=== PATIENT | female | born 1950 | race Hispanic/Latino ===

== ENCOUNTER 2017-05-15 12:04 | Emergency (ER) | payer MEDICARE ==
[2017-05-15] MEDS ORDERED: ASPIRIN 325 MG TABLET ONE (12:56)
[2017-05-15] MEDS ORDERED: FAMOTIDINE 20MG TAB 20 MG TAB ONE (12:57)
[2017-05-15] MEDS ORDERED: MORPHINE SULFATE 2 MG/ML 1ML SYG ONE (12:57)
[2017-05-15] MEDS ORDERED: NITROGLYCERIN 1GM/1 INCH PACKET TD ONE (12:57)
[2017-05-15 12:59] LABS: BASOPHILS % (AUTO) 0.4 % (0.0-5.0); EOSINOPHILS % (AUTO) 2.8 % (0.0-8.0); HEMATOCRIT 37.2 % (36-48); LYMPHOCYTES % (AUTO) 14.9 % (21.0-51.0); MEAN CORPUSCULAR HEMOGLOBIN 30.8 pg (27.0-33.0); MEAN CORPUSCULAR HGB CONC 33.8 g/dL (32.0-36.0); MONOCYTES % (AUTO) 5.3 % (3.0-13.0); NEUTROPHILS % (AUTO) 76.6 % (40.0-77.0); PLATELET COUNT (AUTO) 174 K/uL (130-400); RED BLOOD CELL COUNT(AUTO) 4.09 MIL/uL (4.00-5.50); WHITE BLOOD COUNT (AUTO) 7.6 K/uL (4.8-10.8)
[2017-05-15 13:11] LABS: CREATININE 0.9 mg/dL (0.5-1.5); POTASSIUM 4.1 mmol/L (3.5-5.1)
[2017-05-15 13:11] LABS: APPEARANCE,URINE Clear (CLEAR); BILIRUBIN,URINE Negative (NEGATIVE); COLOR,URINE Yellow (YELLOW); GLUCOSE, URINE (UA) >=1000 mg/dL (NEGATIVE); KETONES,URINE Negative (NEGATIVE); LEUKOCYTE ESTERASE ,URINE Trace (NEGATIVE); NITRATE,URINE Negative (NEGATIVE); OCCULT BLOOD,URINE Negative (NEGATIVE); PH,URINE 6.5 (5.0-8.0); PROTEIN,URINE Negative (NEGATIVE)
[2017-05-15 13:24] LABS: BACTERIA,URINE Rare /HPF (None Seen); RBC,URINE 0-1 /HPF (0-1); SQUAMOUS EPITHELIAL CELL,UR Rare /LPF (0-2)
[2017-05-15 13:24] LABS: ALBUMIN 2.9 g/dL (3.5-5.0); BILIRUBIN,TOTAL 0.3 mg/dL (0.2-1.0); CREATINE KINASE MB 0.5 ng/mL (0.5-3.6); TOTAL PROTEIN, SERUM 7.4 g/dL (6.0-8.3)
[2017-05-15] MEDS ORDERED: INSULIN HUMULIN R 100 UNIT/ML 3ML ONE (13:50)
[2017-05-15] MEDS ORDERED: IOPAMIDOL-370 100 ML VIAL IV ONE (14:36)
[2017-05-15] MEDS ORDERED: MORPHINE SULFATE 4 MG/1ML SYG ONE (14:38)
== END 2017-05-15 17:02 | disposition home or self-care (01) ==
LOC: EDH 12:04
DX: R07.89 Other chest pain (principal); M54.5 Low back pain; R11.0 Nausea; R06.02 Shortness of breath; R10.9 Unspecified abdominal pain; I10 Essential (primary) hypertension; E78.5 Hyperlipidemia, unspecified; E11.9 Type 2 diabetes mellitus without complications; I25.10 Atherosclerotic heart disease of native coronary artery without angina pectoris; Z88.8 Allergy status to other drugs, medicaments and biological substances; Z90.710 Acquired absence of both cervix and uterus; Z90.49 Acquired absence of other specified parts of digestive tract; Z87.891 Personal history of nicotine dependence
CPT/HCPCS: 36415; 71045; 71275; 80053; 81001; 82550; 82553; 83690; 84484; 85025; 85378; 93005; 96374; 96375; 96376; 99285; J1815; J2270; Q9967

== ENCOUNTER 2017-05-30 17:59 | Emergency (ER) | payer MEDICARE ==
[2017-05-30] MEDS ORDERED: PROMETHAZINE HCL 25 MG/ML 1ML AMPULE IM ONE (19:15)
[2017-05-30 19:19] LABS: BASOPHILS % (AUTO) 0.4 % (0.0-5.0); EOSINOPHILS % (AUTO) 3.7 % (0.0-8.0); HEMATOCRIT 35.9 % (36-48); LYMPHOCYTES % (AUTO) 19.1 % (21.0-51.0); MEAN CORPUSCULAR HEMOGLOBIN 30.9 pg (27.0-33.0); MEAN CORPUSCULAR HGB CONC 34.3 g/dL (32.0-36.0); MONOCYTES % (AUTO) 9.5 % (3.0-13.0); NEUTROPHILS % (AUTO) 67.3 % (40.0-77.0); PLATELET COUNT (AUTO) 168 K/uL (130-400); RED BLOOD CELL COUNT(AUTO) 3.98 MIL/uL (4.00-5.50); RED CELL DISTRIBUTION WIDTH 13.4 % (11.0-15.5); WHITE BLOOD COUNT (AUTO) 7.9 K/uL (4.8-10.8)
[2017-05-30 19:31] LABS: POTASSIUM 3.4 mmol/L (3.5-5.1)
[2017-05-30 19:45] LABS: BILIRUBIN,TOTAL 0.4 mg/dL (0.2-1.0); CREATINE KINASE MB 0.8 ng/mL (0.5-3.6); TOTAL PROTEIN, SERUM 7.4 g/dL (6.0-8.3)
[2017-05-30 19:46] LABS: INR 1.01 (0.85-1.15); PARTIAL THROMBOPLASTIN TIME 27.5 SEC (26.3-35.5); PROTHROMBIN TIME 10.6 SEC (9.6-11.6)
[2017-05-30 19:52] LABS: B-TYPE NATRIURETIC PEPTIDE 113 pg/mL (0-100)
== END 2017-05-30 21:50 | disposition home or self-care (01) ==
LOC: EDH 17:59
DX: F41.1 Generalized anxiety disorder (principal); I25.10 Atherosclerotic heart disease of native coronary artery without angina pectoris; E11.9 Type 2 diabetes mellitus without complications; E78.5 Hyperlipidemia, unspecified; I10 Essential (primary) hypertension; Z90.49 Acquired absence of other specified parts of digestive tract; Z90.710 Acquired absence of both cervix and uterus; Z98.890 Other specified postprocedural states; Z88.8 Allergy status to other drugs, medicaments and biological substances
CPT/HCPCS: 36415; 71045; 80053; 82550; 82553; 83880; 84484; 85025; 85610; 85730; 93005; 96372; 99285; J2550

== ENCOUNTER → 2019-04-14 | Outpatient (CLI) | payer MEDICARE | END | disposition home or self-care (01) | LOC: OIH 10:57 | PROVIDERS: ATTEND Internal Medicine | DX: M19.071 Primary osteoarthritis, right ankle and foot (principal); M77.51 Other enthesopathy of right foot and ankle; M19.072 Primary osteoarthritis, left ankle and foot; M77.52 Other enthesopathy of left foot and ankle; M17.0 Bilateral primary osteoarthritis of knee; M19.042 Primary osteoarthritis, left hand; M19.041 Primary osteoarthritis, right hand | CPT/HCPCS: 73560; 73620 ==

== ENCOUNTER 2020-08-06 14:26 | Observation (INO) | payer MEDICARE, OTHER ==
[~2020-08-06] VITALS: Ht 157.5 cm; Wt 117.4 kg
[2020-08-06] MEDS ORDERED: MORPHINE SULFATE 2 MG/ML 1ML SYG ONE (15:10)
[2020-08-06 15:23] LABS: BASOPHILS % (AUTO) 0.4 % (0.0-5.0); EOSINOPHILS % (AUTO) 2.4 % (0.0-8.0); HEMATOCRIT 41.5 % (36-48); LYMPHOCYTES % (AUTO) 12.3 % (21.0-51.0); MEAN CORPUSCULAR HEMOGLOBIN 30.8 pg (27.0-33.0); MEAN CORPUSCULAR HGB CONC 32.5 g/dL (32.0-36.0); MEAN CORPUSCULAR VOLUME 94.7 fL (79-99); NEUTROPHILS % (AUTO) 76.3 % (40.0-77.0); PLATELET COUNT (AUTO) 180 K/uL (130-400); RED BLOOD CELL COUNT(AUTO) 4.38 MIL/uL (4.00-5.50); RED CELL DISTRIBUTION WIDTH 12.2 % (11.0-15.5); WHITE BLOOD COUNT (AUTO) 9.7 K/uL (4.8-10.8)
[2020-08-06 15:36] LABS: CREATININE 1.3 mg/dL (0.5-1.5)
[2020-08-06 15:38] LABS: INR 1.04 (0.85-1.15); PROTHROMBIN TIME 11.3 SEC (9.6-11.6)
[2020-08-06 15:39] LABS: PARTIAL THROMBOPLASTIN TIME 27.1 SEC (26.3-35.5)
[2020-08-06 15:41] LABS: ALBUMIN 3.1 g/dL (3.5-5.0); BILIRUBIN,TOTAL 0.5 mg/dL (0.2-1.0); TOTAL PROTEIN, SERUM 7.9 g/dL (6.0-8.3)
[2020-08-06 16:21] LABS: APPEARANCE,URINE Clear (CLEAR); BILIRUBIN,URINE Negative (NEGATIVE); COLOR,URINE Yellow (YELLOW); GLUCOSE, URINE (UA) >=1000 mg/dL (NEGATIVE); KETONES,URINE Negative (NEGATIVE); LEUKOCYTE ESTERASE ,URINE Negative (NEGATIVE); NITRATE,URINE Negative (NEGATIVE); OCCULT BLOOD,URINE Negative (NEGATIVE); PH,URINE 6.5 (5.0-8.0); PROTEIN,URINE Negative (NEGATIVE)
[2020-08-06 16:28] LABS: BACTERIA,URINE Rare /HPF (None Seen); RBC,URINE None Seen /HPF (0-1); SQUAMOUS EPITHELIAL CELL,UR 0-2 /HPF (0-2); WBC,URINE 0-1 /HPF (0-1)
[2020-08-06] MEDS ORDERED: TRAMADOL /APAP 37.5MG/325MG TAB PO PRN (17:00)
[2020-08-06] MEDS ORDERED: KETOROLAC TROMETHAMINE 15MG/ML IV PRN (17:00)
[2020-08-06] MEDS ORDERED: ONDANSETRON HCL 4 MG/2 ML VIAL IVP PRN (17:00)
[2020-08-06] MEDS ORDERED: MORPHINE SULFATE 4 MG/1ML SYG IM PRN (17:15)
[2020-08-06] MEDS ORDERED: GLUCAGON 1MG KIT 1 MG ML IM PRN (17:30)
[2020-08-06] MEDS ORDERED: DEXTROSE 50%-WATER 50 ML DISP.SYRIN IV PRN (17:30)
[2020-08-06] MEDS ORDERED: KETOROLAC TROMETHAMINE 15MG/ML ONE (17:52)
[2020-08-06] MEDS ORDERED: SODIUM CHLORIDE 0.9% 50 ML IV ONE (17:52)
[2020-08-06] MEDS ORDERED: ZOSYN 3.375GM+NS 50ML 50 ML IV ONE (17:52)
[2020-08-06] MEDS ORDERED: MORPHINE SULFATE 4 MG/1ML SYG ONE (20:48)
[2020-08-06] MEDS ORDERED: INSULIN HUMULIN R 100 UNIT/ML 3ML ONE (20:49)
[2020-08-07] MEDS ORDERED: TRAMADOL /APAP 37.5MG/325MG TAB ONE (05:16)
[2020-08-07 05:38] LABS: HEMATOCRIT 39.8 % (36-48); MEAN CORPUSCULAR HEMOGLOBIN 32.1 pg (27.0-33.0); MEAN CORPUSCULAR HGB CONC 33.4 g/dL (32.0-36.0); MEAN CORPUSCULAR VOLUME 96.1 fL (79-99); RED BLOOD CELL COUNT(AUTO) 4.14 MIL/uL (4.00-5.50); RED CELL DISTRIBUTION WIDTH 12.4 % (11.0-15.5); WHITE BLOOD COUNT (AUTO) 10.4 K/uL (4.8-10.8)
[2020-08-07 05:54] LABS: INR 1.09 (0.85-1.15); PROTHROMBIN TIME 11.8 SEC (9.6-11.6)
[2020-08-07 05:58] LABS: CREATININE 1.4 mg/dL (0.5-1.5); POTASSIUM 4.3 mmol/L (3.5-5.1)
[2020-08-07] MEDS: PANTOPRAZOLE SODIUM 40 MG TABLET.DR PO SCH (09:00)
[2020-08-07] MEDS ORDERED: PANTOPRAZOLE SODIUM 40 MG TABLET.DR ONE (09:37)
[2020-08-07] MEDS ORDERED: KETOROLAC TROMETHAMINE 15MG/ML ONE (10:23)
[2020-08-07] MEDS ORDERED: MORPHINE SULFATE 4 MG/1ML SYG ONE (14:57)
[2020-08-07] MEDS: ZOSYN 3.375GM+NS 50ML 50 ML IV SCH (17:00)
[2020-08-07] MEDS ORDERED: ZOSYN 3.375GM+NS 50ML 50 ML IV ONE (17:53)
[2020-08-07] MEDS ORDERED: SODIUM CHLORIDE 0.9% 50 ML IV ONE (17:54)
[2020-08-07] MEDS ORDERED: INSULIN HUMULIN R 100 UNIT/ML 3ML ONE ×2 (18:28→21:32)
[2020-08-07] MEDS: INSULIN HUMULIN R 100 UNIT/ML 3ML SQ SCH (21:00)
[2020-08-07] MEDS: INSULIN GLARGINE 100 UNITS/ML 10 ML VIAL SQ SCH (21:00)
[2020-08-07] MEDS ORDERED: MORPHINE SULFATE 2 MG/ML 1ML SYG ONE (21:31)
[2020-08-07] MEDS ORDERED: PANTOPRAZOLE 40 MG/VIAL ONE (21:31)
[2020-08-07 23:30] VITALS: BP 114/54
[2020-08-08] VITALS (26 sets, daily range): BP systolic 110–174; BP diastolic 42–87
[2020-08-08] MEDS ORDERED: GABA300C PO (00:29)
[2020-08-08] MEDS ORDERED: METO50TA18 PO (00:29)
[2020-08-08] MEDS ORDERED: SIMV-46 PO (00:29)
[2020-08-08] MEDS ORDERED: GLIP5TAB11 PO (00:29)
[2020-08-08] MEDS ORDERED: BUSP5TAB3 PO (00:29)
[2020-08-08] MEDS ORDERED: LISI10TA24 PO (00:29)
[2020-08-08] MEDS ORDERED: TRAM50TA4 PO (00:29)
[2020-08-08] MEDS ORDERED: ALPR0.255 PO (00:29)
[2020-08-08] MEDS ORDERED: BUSPIRONE HCL 5 MG TABLET PO ONE (01:07)
[2020-08-08] MEDS ORDERED: INSU100I35 SQ (01:36)
[2020-08-08] MEDS: ZOSYN 3.375GM+NS 50ML 50 ML IV SCH ×2 (05:26→17:00)
[2020-08-08 05:35] LABS: HEMATOCRIT 36.2 % (36-48); MEAN CORPUSCULAR HEMOGLOBIN 32.1 pg (27.0-33.0); MEAN CORPUSCULAR HGB CONC 33.7 g/dL (32.0-36.0); MEAN CORPUSCULAR VOLUME 95.3 fL (79-99); RED BLOOD CELL COUNT(AUTO) 3.8 MIL/uL (4.00-5.50); RED CELL DISTRIBUTION WIDTH 12.5 % (11.0-15.5); WHITE BLOOD COUNT (AUTO) 8.1 K/uL (4.8-10.8)
[2020-08-08] MEDS: INSULIN HUMULIN R 100 UNIT/ML 3ML SQ SCH ×4 (05:45→20:36)
[2020-08-08 05:55] LABS: CREATININE 1.2 mg/dL (0.5-1.5); POTASSIUM 3.9 mmol/L (3.5-5.1)
[2020-08-08] MEDS: BUSPIRONE HCL 5 MG TABLET PO SCH ×2 (09:00→20:04)
[2020-08-08] MEDS: PANTOPRAZOLE SODIUM 40 MG TABLET.DR PO SCH (09:00)
[2020-08-08] MEDS ORDERED: CEFAZOLIN SODIUM 1 GM VIAL ONE (12:05)
[2020-08-08] MEDS ORDERED: IPRATROPIUM/ALBUTEROL SULFATE 3 ML SOLUTION IH PRN (14:30)
[2020-08-08] MEDS ORDERED: SODIUM CHLORIDE 0.9% 1000ML 1,000 ML IV ONE (14:39)
[2020-08-08] MEDS ORDERED: LIDOCAINE PF 2% 5ML ABBOJECT ONE (15:02)
[2020-08-08] MEDS ORDERED: PROPOFOL 10 MG/ML 20ML VIAL IV ONE (15:03)
[2020-08-08] MEDS ORDERED: MIDAZOLAM HCL 1 MG/ML 2ML VIAL ONE ×2 (15:03→15:06)
[2020-08-08] MEDS ORDERED: DEXAMETHASONE SOD PHOSPHATE 10MG/ML 1ML VIAL ONE (15:03)
[2020-08-08] MEDS ORDERED: ONDANSETRON HCL 4 MG/2 ML VIAL ONE (15:03)
[2020-08-08] MEDS ORDERED: FENTANYL CITRATE PF 50 MCG/1 ML 2ML VIAL ONE (15:03)
[2020-08-08] MEDS ORDERED: MEPERIDINE-PF 25 MG/ML SYG ONE (15:07)
[2020-08-08] MEDS ORDERED: MORPHINE SULFATE 4 MG/1ML SYG IV PRN (17:15)
[2020-08-08] MEDS ORDERED: IPRATROPIUM/ALBUTEROL SULFATE 3 ML SOLUTION IH SCH (18:00)
[2020-08-08] MEDS: INSULIN GLARGINE 100 UNITS/ML 10 ML VIAL SQ SCH (20:07)
== END 2020-08-08 22:15 | disposition home or self-care (01) ==
LOC: EDH 14:26 → EDHIP 16:51 → 3CH 08-07 22:28
PROVIDERS: ADMIT Internal Medicine; ATTEND Internal Medicine
DX: S01.112A Laceration without foreign body of left eyelid and periocular area, initial encounter (principal); S01.81XA Laceration without foreign body of other part of head, initial encounter; S80.02XA Contusion of left knee, initial encounter; E11.22 Type 2 diabetes mellitus with diabetic chronic kidney disease; I12.9 Hypertensive chronic kidney disease with stage 1 through stage 4 chronic kidney disease, or unspecified chronic kidney disease; N18.30 Chronic kidney disease, stage 3 unspecified; E78.5 Hyperlipidemia, unspecified; E66.01 Morbid (severe) obesity due to excess calories; M19.90 Unspecified osteoarthritis, unspecified site; J45.909 Unspecified asthma, uncomplicated; I25.10 Atherosclerotic heart disease of native coronary artery without angina pectoris; Z68.41 Body mass index [BMI] 40.0-44.9, adult; Z90.49 Acquired absence of other specified parts of digestive tract; Z90.710 Acquired absence of both cervix and uterus; Z91.81 History of falling; Z79.4 Long term (current) use of insulin; Z79.899 Other long term (current) drug therapy; Z91.041 Radiographic dye allergy status; W01.190A Fall on same level from slipping, tripping and stumbling with subsequent striking against furniture, initial encounter; Y93.89 Activity, other specified; Y92.009 Unspecified place in unspecified non-institutional (private) residence as the place of occurrence of the external cause
CPT/HCPCS: 13132; 13133; 36415 ×3; 70450; 70486; 71045; 73562 ×2; 80048 ×2; 80053; 81001; 82948 ×6; 85025; 85027 ×2; 85610 ×2; 85730; 93005; 94640; 94664; 96365; 96366; 96372; 96375; 99285; A4930; C9113; G0168; G0378 ×52; J0690; J1100; J1815 ×5; J1885 ×4; J2001; J2175; J2250 ×2; J2270 ×2; J2405; J2543 ×3; J2704; J3010; J7030 ×2

== ENCOUNTER 2022-10-13 16:57 | Inpatient (IN) | payer OTHER ==
[~2022-10-13] VITALS: Ht 157.5 cm; Wt 142.9 kg
[~2022-10-13 16:57] MED LIST: ACET-66 PO; ALPR0.255 PO; BUSP5TAB3 PO; FAMO20TA8 PO; FLUT1BLS12 IH; GABA300C PO; GLIP5TAB11 PO; INSU100C6 SQ; INSU100I35 SQ; INSU100V12 SQ; LISI10TA24 PO; METF-446 PO; METO50TA18 PO; OMEP20TA20 PO; PRIM125T PO; SEMA2PEN SQ; SIMV-46 PO; TRAM50TA4 PO
[2022-10-13 18:06] LABS: HEMATOCRIT 34.8 % (36-48); MEAN CORPUSCULAR HEMOGLOBIN 33.1 pg (27.0-33.0); MEAN CORPUSCULAR HGB CONC 31.9 g/dL (32.0-36.0); MEAN CORPUSCULAR VOLUME 103.9 fL (79-99); RED BLOOD CELL COUNT(AUTO) 3.35 MIL/uL (4.00-5.50); RED CELL DISTRIBUTION WIDTH 14.2 % (11.0-15.5); WHITE BLOOD COUNT (AUTO) 7.3 K/uL (4.8-10.8)
[2022-10-13 18:15] LABS: CREATININE 1.3 mg/dL (0.5-1.5); POTASSIUM 4.8 mmol/L (3.5-5.1)
[2022-10-13 18:19] LABS: BILIRUBIN,TOTAL 0.9 mg/dL (0.2-1.0); TOTAL PROTEIN, SERUM 6.4 g/dL (6.0-8.3)
[2022-10-13 19:24] LABS: APPEARANCE,URINE CLOUDY (CLEAR); BILIRUBIN,URINE NEGATIVE (NEGATIVE); COLOR,URINE YELLOW (YELLOW); GLUCOSE, URINE (UA) NEGATIVE (NEGATIVE); KETONES,URINE NEGATIVE (NEGATIVE); LEUKOCYTE ESTERASE ,URINE 500 Leu/uL (NEGATIVE); NITRATE,URINE 2+ (NEGATIVE); OCCULT BLOOD,URINE NEGATIVE (NEGATIVE); PROTEIN,URINE 30 mg/dL (NEGATIVE)
[2022-10-13 19:25] LABS: INFLUENZA TYPE A Negative For Type A (NEGATIVE); INFLUENZA TYPE B Negative For Type B (NEGATIVE); SARS-CoV-2, RNA, NAAT POSITIVE SARS CoV-2 (NEGATIVE)
[2022-10-13 19:26] LABS: ADD UA MICROSCOPIC YES
[2022-10-13 19:28] LABS: BACTERIA,URINE MOD /HPF (None Seen); SQUAMOUS EPITHELIAL CELL,UR MOD /HPF (0-2); WBC,URINE TNTC /HPF (0-1)
[2022-10-13 19:42] LABS: ABG HCO3 31.7 mmol/L (21.0-28.0); ABG PCO2 57 mmHg (32-45); ABG PH 7.365 (7.35-7.450); CARBON MONOXIDE 0.9; VENT MODE, BG NC (ROOM AIR)
[2022-10-13] MEDS ORDERED: FUROSEMIDE 40MG VIAL ONE (20:00)
[2022-10-13] MEDS ORDERED: ACETAMINOPHEN 325 MG TAB PO ONE (20:00)
[2022-10-13] MEDS ORDERED: FUROSEMIDE 100MG VIAL IVP ONE (20:00)
[2022-10-13] MEDS ORDERED: SOLU-MEDROL 125MG VIAL IVP ONE (20:00)
[2022-10-13] MEDS ORDERED: CEFTRIAXONE 1G VIAL IVPB ONE (21:00)
[2022-10-13] MEDS ORDERED: AZITHROMYCIN 250 MG TABLET PO ONE (21:00)
[2022-10-13] MEDS ORDERED: CLONIDINE HCL 0.1 MG TABLET PO PRN (23:30)
[2022-10-13] MEDS ORDERED: LABETALOL 20MG SYG IV PRN (23:30)
[2022-10-13] MEDS ORDERED: HYDRALAZINE 20MG/ML VIAL IV PRN (23:30)
[2022-10-13] MEDS: CEFTRIAXONE 1G VIAL IV SCH (23:30)
[2022-10-13] MEDS ORDERED: TEMAZEPAM 15 MG CAPSULE PO PRN (23:30)
[2022-10-13] MEDS ORDERED: ERGOCALCIFEROL (VITAMIN D2) 50,000 UNIT CAPSULE PO ONE (23:30)
[2022-10-13] MEDS: ALBUTEROL INHALER 90MCG/INH IH SCH (23:45)
[2022-10-14] MEDS ORDERED: IPRATROPIUM 0.5 MG/2.5 ML INH IH SCH
[2022-10-14] MEDS: ACETAMINOPHEN 325 MG TAB PO PRN (00:26)
[2022-10-14] MEDS: DEXAMETHASONE SOD PHOSPHATE 4 MG/ML 1ML VIAL IVP SCH ×2 (00:26→22:27)
[2022-10-14] MEDS: DOXYCYCLINE 100MG+NS 250ML IV SCH ×3 (00:26→22:26)
[2022-10-14] MEDS: ONDANSETRON 4MG INJ IVP PRN (01:28)
[2022-10-14 02:25] VITALS: PULSE 79; RESP 20; O2SAT 100
[2022-10-14 03:31] LABS: ABG BASE EXCESS 5.8 mmol/L (-2.0-3.0); ABG HCO3 33.1 mmol/L (21.0-28.0); ABG OXYGEN SATURATION 94.3 % (95.0-99.0); ABG PCO2 59 mmHg (32-45); ABG PH 7.365 (7.35-7.450); PO2, ARTERIAL BG 74.8 mmHg (83.0-108.0); VENT MODE, BG NC (ROOM AIR)
[2022-10-14] MEDS ORDERED: FUROSEMIDE 40MG VIAL IV ONE (04:30)
[2022-10-14] MEDS ORDERED: IOHEXOL 350 MG/ML 100ML INFUS..BTL IV ONE ×2 (05:42→08:13)
[2022-10-14] MEDS: ALBUTEROL INHALER 90MCG/INH IH SCH (05:45)
[2022-10-14 07:47] LABS: HEMATOCRIT 34.9 % (36-48); MEAN CORPUSCULAR HGB CONC 31.5 g/dL (32.0-36.0); MEAN CORPUSCULAR VOLUME 104.8 fL (79-99); RED BLOOD CELL COUNT(AUTO) 3.33 MIL/uL (4.00-5.50); WHITE BLOOD COUNT (AUTO) 7.8 K/uL (4.8-10.8)
[2022-10-14 08:17] LABS: CREATININE 1.4 mg/dL (0.5-1.5); MAGNESIUM 1.7 mg/dL (1.80-2.40); PHOSPHORUS 5.3 mg/dL (2.5-4.9); POTASSIUM 5.5 mmol/L (3.5-5.1); THYROID STIMULATING HORMONE 1.9 uIU/mL (0.36-3.74)
[2022-10-14] MEDS: INSULIN HUMULIN SQ SCH ×2 (09:00→20:41)
[2022-10-14] MEDS ORDERED: FLUTICASONE SALMETEROL IH SCH (09:00)
[2022-10-14] MEDS: METOPROLOL TARTRATE 50 MG TAB PO SCH ×2 (09:00→20:40)
[2022-10-14] MEDS: ENOXAPARIN SODIUM 30 MG/0.3 ML SQ SCH (09:32)
[2022-10-14] MEDS: BUSPIRONE HCL 5 MG TABLET PO SCH ×2 (09:32→20:40)
[2022-10-14] MEDS: PRIMIDONE 50 MG TAB PO SCH (09:33)
[2022-10-14] MEDS: ASPIRIN 81MG CHEW TAB PO SCH (09:33)
[2022-10-14] MEDS: GABAPENTIN 300 MG CAPSULE PO SCH ×2 (09:33→20:40)
[2022-10-14] MEDS: ASCORBIC ACID 500 MG TAB PO SCH (09:33)
[2022-10-14] MEDS: INSULIN HUMULIN R 100 UNIT/ML 3ML SQ SCH ×4 (09:35→20:58)
[2022-10-14] MEDS: ZINC SULFATE 220 CAPSULE PO SCH (09:36)
[2022-10-14] MEDS: CEFTRIAXONE 1G VIAL IV SCH ×2 (11:43→22:26)
[2022-10-14 12:11] LABS: INR 1.22 (0.85-1.15)
[2022-10-14 13:30] VITALS: O2SAT 94
[2022-10-14 16:00] VITALS: BP 124/67; PULSE 70; RESP 19
[2022-10-14 20:23] VITALS: BP 107/50; PULSE 85; RESP 20
[2022-10-14] MEDS: SIMVASTATIN 20 MG TABLET PO SCH (20:41)
[2022-10-14] MEDS: INSULIN GLARGINE 100 UNITS/ML 10 ML VIAL SQ SCH (20:59)
[2022-10-14] MEDS: GUAIFENESIN-DM 200/20 MG 10 ML PO PRN (22:53)
[2022-10-14 23:42] VITALS: BP 112/49; PULSE 82; RESP 18
[2022-10-15] VITALS (9 sets, daily range): BP systolic 103–118; BP diastolic 44–78; PULSE 67–77; RESP 16–20; O2SAT 97–98
[2022-10-15 04:53] LABS: BASOPHILS # (AUTO) 0.02 K/uL (0.00-0.20); BASOPHILS % (AUTO) 0.2 % (0.0-5.0); HEMATOCRIT 33.9 % (36-48); IMMATURE GRANULOCYTE ABSOLUTE 0.07 K/uL (0-1); LYMPHOCYTES # (AUTO) 0.7 K/uL (1.0-4.8); LYMPHOCYTES % (AUTO) 5.7 % (21.0-51.0); MEAN CORPUSCULAR HEMOGLOBIN 33.2 pg (27.0-33.0); MEAN CORPUSCULAR HGB CONC 31.6 g/dL (32.0-36.0); MEAN CORPUSCULAR VOLUME 105.3 fL (79-99); MONOCYTES # (AUTO) 0.7 K/uL (0.1-1.0); MONOCYTES % (AUTO) 5.8 % (3.0-13.0); NEUTROPHILS # (AUTO) 10.7 K/uL (1.8-7.7); NEUTROPHILS % (AUTO) 87.7 % (40.0-77.0); PLATELET COUNT (AUTO) 126 K/uL (130-400); RED BLOOD CELL COUNT(AUTO) 3.22 MIL/uL (4.00-5.50); RED CELL DISTRIBUTION WIDTH 14.4 % (11.0-15.5); WHITE BLOOD COUNT (AUTO) 12.2 K/uL (4.8-10.8)
[2022-10-15 05:08] LABS: WBC MORPHOLOGY CONSISTENT W/DIFF
[2022-10-15 05:24] LABS: BILIRUBIN,TOTAL 0.5 mg/dL (0.2-1.0); CREATININE 1.8 mg/dL (0.5-1.5); MAGNESIUM 1.7 mg/dL (1.80-2.40); POTASSIUM 5.5 mmol/L (3.5-5.1); TOTAL PROTEIN, SERUM 6.4 g/dL (6.0-8.3)
[2022-10-15] MEDS: INSULIN HUMULIN R 100 UNIT/ML 3ML SQ SCH ×4 (06:04→19:46)
[2022-10-15] MEDS ORDERED: MAGNESIUM OXIDE 400 MG TABLET PO ONE (08:30)
[2022-10-15] MEDS ORDERED: KAYEXALATE 15GM/60ML PO ONE (08:30)
[2022-10-15] MEDS ORDERED: DEXAMETHASONE 4 MG TAB PO SCH (08:30)
[2022-10-15] MEDS ORDERED: ZOSYN 3.375GM +NS 50ML IVPB SCH (09:00)
[2022-10-15] MEDS ORDERED: 0.9%NACL 50ML IV SCH (09:00)
[2022-10-15] MEDS: PRIMIDONE 50 MG TAB PO SCH (09:06)
[2022-10-15] MEDS: ZINC SULFATE 220 CAPSULE PO SCH (09:07)
[2022-10-15] MEDS: GABAPENTIN 300 MG CAPSULE PO SCH ×2 (09:08→22:15)
[2022-10-15] MEDS: ASPIRIN 81MG CHEW TAB PO SCH (09:08)
[2022-10-15] MEDS: METOPROLOL TARTRATE 50 MG TAB PO SCH ×2 (09:08→22:16)
[2022-10-15] MEDS: ASCORBIC ACID 500 MG TAB PO SCH (09:09)
[2022-10-15] MEDS: BUSPIRONE HCL 5 MG TABLET PO SCH ×2 (09:09→22:15)
[2022-10-15] MEDS: ENOXAPARIN SODIUM 30 MG/0.3 ML SQ SCH (09:10)
[2022-10-15] MEDS: INSULIN HUMULIN SQ SCH ×2 (09:35→22:20)
[2022-10-15] MEDS: 0.9%NACL 1000ML 1,000 ML IV SCH ×2 (13:30→23:30)
[2022-10-15] MEDS: DEXAMETHASONE 4 MG TAB PO SCH (17:28)
[2022-10-15] MEDS: CEFTRIAXONE 2GM VIAL IVPB SCH (17:28)
[2022-10-15] MEDS: SIMVASTATIN 20 MG TABLET PO SCH (22:15)
[2022-10-15] MEDS: INSULIN GLARGINE 100 UNITS/ML 10 ML VIAL SQ SCH (22:18)
[2022-10-15] MEDS ORDERED: DEXAMETHASONE SOD PHOSPHATE 4 MG/ML 1ML VIAL IVP SCH (23:30)
[2022-10-16] VITALS (10 sets, daily range): BP systolic 96–127; BP diastolic 47–64; PULSE 18–65; RESP 15–22; O2SAT 96–99
[2022-10-16 03:20] LABS: ABG BASE EXCESS 4.1 mmol/L (-2.0-3.0); ABG HCO3 31.9 mmol/L (21.0-28.0); ABG OXYGEN SATURATION 94.5 % (95.0-99.0); ABG PCO2 62 mmHg (32-45); ABG PH 7.333 (7.35-7.450); PO2, ARTERIAL BG 78.2 mmHg (83.0-108.0); VENT MODE, BG NC (ROOM AIR)
[2022-10-16 05:08] LABS: BASOPHILS # (AUTO) 0.01 K/uL (0.00-0.20); BASOPHILS % (AUTO) 0.1 % (0.0-5.0); HEMATOCRIT 33.5 % (36-48); IMMATURE GRANULOCYTE ABSOLUTE 0.04 K/uL (0-1); LYMPHOCYTES # (AUTO) 0.7 K/uL (1.0-4.8); LYMPHOCYTES % (AUTO) 7.1 % (21.0-51.0); MEAN CORPUSCULAR HGB CONC 31.6 g/dL (32.0-36.0); MEAN CORPUSCULAR VOLUME 104.4 fL (79-99); MONOCYTES # (AUTO) 0.7 K/uL (0.1-1.0); MONOCYTES % (AUTO) 7.7 % (3.0-13.0); NEUTROPHILS # (AUTO) 7.7 K/uL (1.8-7.7); NEUTROPHILS % (AUTO) 84.7 % (40.0-77.0); PLATELET COUNT (AUTO) 125 K/uL (130-400); RED BLOOD CELL COUNT(AUTO) 3.21 MIL/uL (4.00-5.50); RED CELL DISTRIBUTION WIDTH 14.4 % (11.0-15.5); WHITE BLOOD COUNT (AUTO) 9.1 K/uL (4.8-10.8)
[2022-10-16 05:46] LABS: ALBUMIN 2.1 g/dL (3.5-5.0); BILIRUBIN,TOTAL 0.4 mg/dL (0.2-1.0); CREATININE 2.2 mg/dL (0.5-1.5); MAGNESIUM 1.7 mg/dL (1.80-2.40); POTASSIUM 4.8 mmol/L (3.5-5.1); TOTAL PROTEIN, SERUM 6.3 g/dL (6.0-8.3)
[2022-10-16] MEDS: INSULIN HUMULIN R 100 UNIT/ML 3ML SQ SCH ×4 (07:30→22:50)
[2022-10-16] MEDS ORDERED: ALBUTEROL INHALER 90MCG/INH IH SCH (09:30)
[2022-10-16] MEDS: 0.9%NACL 1000ML 1,000 ML IV SCH ×2 (09:30→19:30)
[2022-10-16] MEDS: METOPROLOL TARTRATE 50 MG TAB PO SCH ×2 (09:31→22:53)
[2022-10-16] MEDS: ASCORBIC ACID 500 MG TAB PO SCH (09:31)
[2022-10-16] MEDS: BUSPIRONE HCL 5 MG TABLET PO SCH ×2 (09:31→22:53)
[2022-10-16] MEDS: ZINC SULFATE 220 CAPSULE PO SCH (09:32)
[2022-10-16] MEDS: PRIMIDONE 50 MG TAB PO SCH (09:32)
[2022-10-16] MEDS: DEXAMETHASONE 4 MG TAB PO SCH (09:32)
[2022-10-16] MEDS: ASPIRIN 81MG CHEW TAB PO SCH (09:32)
[2022-10-16] MEDS: GABAPENTIN 300 MG CAPSULE PO SCH ×2 (09:33→22:53)
[2022-10-16] MEDS: ENOXAPARIN SODIUM 30 MG/0.3 ML SQ SCH (09:34)
[2022-10-16] MEDS: INSULIN HUMULIN SQ SCH ×2 (09:49→22:50)
[2022-10-16] MEDS: HYDROCODONE/ACETAMINOPHEN 5/325 MG TAB PO PRN (13:36)
[2022-10-16] MEDS: IPRATROPIUM/ALBUTEROL SULFATE 3 ML SOLUTION IH SCH ×2 (14:14→19:44)
[2022-10-16] MEDS: CEFTRIAXONE 2GM VIAL IVPB SCH (14:54)
[2022-10-16 16:35] LABS: INR 1.22 (0.85-1.15)
[2022-10-16] MEDS: OCTREOTIDE ACETATE 100 MCG/ML AMP SQ SCH (18:10)
[2022-10-16] MEDS ORDERED: PHARMACY COMMUNICATION MISC SCH (18:30)
[2022-10-16] MEDS ORDERED: ALBUMIN (HUMAN) 25% 50 ML IV ONE (21:00)
[2022-10-16] MEDS: INSULIN GLARGINE 100 UNITS/ML 10 ML VIAL SQ SCH (22:49)
[2022-10-16] MEDS: SIMVASTATIN 20 MG TABLET PO SCH (22:53)
[2022-10-16] MEDS: MIDODRINE HCL 5 MG TABLET PO SCH (22:53)
[2022-10-17] VITALS (14 sets, daily range): BP systolic 97–152; BP diastolic 40–69; PULSE 59–71; RESP 16–24; O2SAT 94–98
[2022-10-17] MEDS: IPRATROPIUM/ALBUTEROL SULFATE 3 ML SOLUTION IH SCH ×5 (00:19→23:40)
[2022-10-17] MEDS: OCTREOTIDE ACETATE 100 MCG/ML AMP SQ SCH ×3 (02:34→16:21)
[2022-10-17] MEDS: 0.9%NACL 1000ML 1,000 ML IV SCH ×3 (05:43→21:34)
[2022-10-17 05:56] LABS: HEMATOCRIT 32.7 % (36-48); IMMATURE GRANULOCYTE ABSOLUTE 0.04 K/uL (0-1); LYMPHOCYTES # (AUTO) 0.6 K/uL (1.0-4.8); LYMPHOCYTES % (AUTO) 7.8 % (21.0-51.0); MEAN CORPUSCULAR HEMOGLOBIN 33.1 pg (27.0-33.0); MEAN CORPUSCULAR HGB CONC 32.4 g/dL (32.0-36.0); MEAN CORPUSCULAR VOLUME 102.2 fL (79-99); MONOCYTES # (AUTO) 0.9 K/uL (0.1-1.0); MONOCYTES % (AUTO) 12.1 % (3.0-13.0); NEUTROPHILS # (AUTO) 5.6 K/uL (1.8-7.7); NEUTROPHILS % (AUTO) 79.5 % (40.0-77.0); PLATELET COUNT (AUTO) 121 K/uL (130-400); RED CELL DISTRIBUTION WIDTH 14.4 % (11.0-15.5)
[2022-10-17 06:20] LABS: ALBUMIN 2.3 g/dL (3.5-5.0); BILIRUBIN,TOTAL 0.4 mg/dL (0.2-1.0); CREATININE 2.4 mg/dL (0.5-1.5); MAGNESIUM 1.8 mg/dL (1.80-2.40); POTASSIUM 4.4 mmol/L (3.5-5.1); TOTAL PROTEIN, SERUM 6.5 g/dL (6.0-8.3)
[2022-10-17] MEDS: INSULIN HUMULIN R 100 UNIT/ML 3ML SQ SCH ×4 (07:30→21:00)
[2022-10-17] MEDS: INSULIN HUMULIN SQ SCH ×2 (09:00→21:17)
[2022-10-17] MEDS: METOPROLOL TARTRATE 50 MG TAB PO SCH ×2 (09:00→21:11)
[2022-10-17] MEDS: ASCORBIC ACID 500 MG TAB PO SCH (10:00)
[2022-10-17] MEDS: PRIMIDONE 50 MG TAB PO SCH (10:00)
[2022-10-17] MEDS: ZINC SULFATE 220 CAPSULE PO SCH (10:00)
[2022-10-17] MEDS: BUSPIRONE HCL 5 MG TABLET PO SCH ×2 (10:00→21:10)
[2022-10-17] MEDS: ASPIRIN 81MG CHEW TAB PO SCH (10:00)
[2022-10-17] MEDS: GABAPENTIN 300 MG CAPSULE PO SCH ×2 (10:00→21:11)
[2022-10-17] MEDS: FUROSEMIDE 20MG VIAL IV SCH ×2 (10:01→21:10)
[2022-10-17] MEDS: DEXAMETHASONE 4 MG TAB PO SCH (10:01)
[2022-10-17] MEDS: MIDODRINE HCL 5 MG TABLET PO SCH ×3 (10:02→21:12)
[2022-10-17] MEDS: ENOXAPARIN SODIUM 30 MG/0.3 ML SQ SCH (10:03)
[2022-10-17] MEDS: HYDROCODONE/ACETAMINOPHEN 5/325 MG TAB PO PRN ×2 (10:31→16:48)
[2022-10-17] MEDS: CEFTRIAXONE 2GM VIAL IVPB SCH (16:21)
[2022-10-17] MEDS: SIMVASTATIN 20 MG TABLET PO SCH (21:11)
[2022-10-17] MEDS: INSULIN GLARGINE 100 UNITS/ML 10 ML VIAL SQ SCH (21:17)
[2022-10-18] VITALS (11 sets, daily range): BP systolic 126–158; BP diastolic 46–79; PULSE 52–69; RESP 16–24; O2SAT 94–99
[2022-10-18] MEDS: OCTREOTIDE ACETATE 100 MCG/ML AMP SQ SCH ×3 (00:02→15:39)
[2022-10-18 06:21] LABS: BASOPHILS # (AUTO) 0.01 K/uL (0.00-0.20); BASOPHILS % (AUTO) 0.1 % (0.0-5.0); IMMATURE GRANULOCYTE ABSOLUTE 0.03 K/uL (0-1); LYMPHOCYTES # (AUTO) 0.7 K/uL (1.0-4.8); LYMPHOCYTES % (AUTO) 9.3 % (21.0-51.0); MEAN CORPUSCULAR HEMOGLOBIN 33.3 pg (27.0-33.0); MEAN CORPUSCULAR HGB CONC 31.2 g/dL (32.0-36.0); MEAN CORPUSCULAR VOLUME 106.9 fL (79-99); MONOCYTES # (AUTO) 0.9 K/uL (0.1-1.0); NEUTROPHILS # (AUTO) 5.5 K/uL (1.8-7.7); NEUTROPHILS % (AUTO) 77.2 % (40.0-77.0); PLATELET COUNT (AUTO) 115 K/uL (130-400); RED BLOOD CELL COUNT(AUTO) 3.18 MIL/uL (4.00-5.50); RED CELL DISTRIBUTION WIDTH 14.2 % (11.0-15.5); WHITE BLOOD COUNT (AUTO) 7.2 K/uL (4.8-10.8)
[2022-10-18 06:36] LABS: ALBUMIN 2.2 g/dL (3.5-5.0); BILIRUBIN,TOTAL 0.5 mg/dL (0.2-1.0); CREATININE 2.5 mg/dL (0.5-1.5); MAGNESIUM 1.8 mg/dL (1.80-2.40); TOTAL PROTEIN, SERUM 6.8 g/dL (6.0-8.3)
[2022-10-18] MEDS: INSULIN HUMULIN R 100 UNIT/ML 3ML SQ SCH ×4 (06:42→20:51)
[2022-10-18] MEDS: IPRATROPIUM/ALBUTEROL SULFATE 3 ML SOLUTION IH SCH ×4 (07:15→23:44)
[2022-10-18] MEDS: MIDODRINE HCL 5 MG TABLET PO SCH ×3 (07:57→20:02)
[2022-10-18] MEDS ORDERED: FUROSEMIDE 20MG VIAL IV SCH (09:00)
[2022-10-18] MEDS: ENOXAPARIN SODIUM 30 MG/0.3 ML SQ SCH (09:31)
[2022-10-18] MEDS: DEXAMETHASONE 4 MG TAB PO SCH (09:32)
[2022-10-18] MEDS: ASCORBIC ACID 500 MG TAB PO SCH (09:32)
[2022-10-18] MEDS: PRIMIDONE 50 MG TAB PO SCH (09:32)
[2022-10-18] MEDS: ZINC SULFATE 220 CAPSULE PO SCH (09:32)
[2022-10-18] MEDS: ASPIRIN 81MG CHEW TAB PO SCH (09:33)
[2022-10-18] MEDS: METOPROLOL TARTRATE 50 MG TAB PO SCH ×2 (09:33→20:02)
[2022-10-18] MEDS: GABAPENTIN 300 MG CAPSULE PO SCH ×2 (09:33→20:02)
[2022-10-18] MEDS: 0.9%NACL 1000ML 1,000 ML IV SCH ×2 (09:35→16:30)
[2022-10-18] MEDS: BUSPIRONE HCL 5 MG TABLET PO SCH ×2 (09:36→20:02)
[2022-10-18] MEDS: INSULIN HUMULIN SQ SCH ×2 (09:47→20:51)
[2022-10-18] MEDS ORDERED: HONEY 1 APPL/ML TUBE TP SCH (10:30)
[2022-10-18] MEDS: ONDANSETRON 4MG INJ IVP PRN (12:01)
[2022-10-18] MEDS: CEFTRIAXONE 2GM VIAL IVPB SCH (15:39)
[2022-10-18] MEDS: SIMVASTATIN 20 MG TABLET PO SCH (20:02)
[2022-10-18] MEDS: INSULIN GLARGINE 100 UNITS/ML 10 ML VIAL SQ SCH (20:51)
[2022-10-19] VITALS (11 sets, daily range): BP systolic 114–160; BP diastolic 41–60; PULSE 57–63; RESP 16–20; O2SAT 92–100
[2022-10-19] MEDS: OCTREOTIDE ACETATE 100 MCG/ML AMP SQ SCH ×4 (00:11→23:22)
[2022-10-19] MEDS: ACETAMINOPHEN 325 MG TAB PO PRN ×2 (00:20→23:22)
[2022-10-19] MEDS: 0.9%NACL 1000ML 1,000 ML IV SCH ×3 (02:11→23:00)
[2022-10-19 05:43] LABS: ALBUMIN 2.3 g/dL (3.5-5.0); BILIRUBIN,TOTAL 0.4 mg/dL (0.2-1.0); CREATININE 2.6 mg/dL (0.5-1.5); MAGNESIUM 1.8 mg/dL (1.80-2.40); POTASSIUM 4.7 mmol/L (3.5-5.1); TOTAL PROTEIN, SERUM 6.8 g/dL (6.0-8.3)
[2022-10-19] MEDS: INSULIN HUMULIN R 100 UNIT/ML 3ML SQ SCH ×4 (06:15→21:00)
[2022-10-19] MEDS: IPRATROPIUM/ALBUTEROL SULFATE 3 ML SOLUTION IH SCH ×5 (06:52→23:15)
[2022-10-19] MEDS: GABAPENTIN 300 MG CAPSULE PO SCH ×2 (08:49→19:45)
[2022-10-19] MEDS: BUSPIRONE HCL 5 MG TABLET PO SCH ×2 (08:50→19:45)
[2022-10-19] MEDS: METOPROLOL TARTRATE 50 MG TAB PO SCH ×2 (08:50→19:45)
[2022-10-19] MEDS: ASCORBIC ACID 500 MG TAB PO SCH (08:50)
[2022-10-19] MEDS: PRIMIDONE 50 MG TAB PO SCH (08:50)
[2022-10-19] MEDS: MIDODRINE HCL 5 MG TABLET PO SCH ×3 (08:50→19:52)
[2022-10-19] MEDS: DEXAMETHASONE 4 MG TAB PO SCH (08:50)
[2022-10-19] MEDS: ZINC SULFATE 220 CAPSULE PO SCH (08:50)
[2022-10-19] MEDS: ASPIRIN 81MG CHEW TAB PO SCH (08:51)
[2022-10-19] MEDS: ENOXAPARIN SODIUM 30 MG/0.3 ML SQ SCH (08:51)
[2022-10-19] MEDS: INSULIN HUMULIN SQ SCH ×2 (08:57→21:23)
[2022-10-19] MEDS ORDERED: POLYETHYLENE GLYCOL 3350 17 GM POWD.PACK PO PRN (13:30)
[2022-10-19] MEDS: CEFTRIAXONE 2GM VIAL IVPB SCH (15:30)
[2022-10-19] MEDS: POLYETHYLENE GLYCOL 3350 17 GM POWD.PACK PO PRN ×2 (15:31→19:51)
[2022-10-19] MEDS: SIMVASTATIN 20 MG TABLET PO SCH (19:45)
[2022-10-19] MEDS: DOCUSATE SODIUM 100 MG CAP PO SCH (19:45)
[2022-10-19] MEDS: INSULIN GLARGINE 100 UNITS/ML 10 ML VIAL SQ SCH (21:23)
[2022-10-19] MEDS: ONDANSETRON 4MG INJ IVP PRN (23:22)
[2022-10-20] VITALS (13 sets, daily range): BP systolic 126–186; BP diastolic 42–75; PULSE 55–65; RESP 17–23; O2SAT 99–100
[2022-10-20] MEDS ORDERED: DEXTROSE 50%-WATER 50 ML DISP.SYRIN IV ONE ×3 (03:21→15:07)
[2022-10-20] MEDS: GUAIFENESIN-DM 200/20 MG 10 ML PO PRN (03:21)
[2022-10-20 05:20] LABS: BASOPHILS # (AUTO) 0.01 K/uL (0.00-0.20); BASOPHILS % (AUTO) 0.1 % (0.0-5.0); HEMATOCRIT 40.5 % (36-48); IMMATURE GRANULOCYTE ABSOLUTE 0.05 K/uL (0-1); LYMPHOCYTES # (AUTO) 0.6 K/uL (1.0-4.8); MEAN CORPUSCULAR HEMOGLOBIN 33.2 pg (27.0-33.0); MEAN CORPUSCULAR HGB CONC 31.6 g/dL (32.0-36.0); MEAN CORPUSCULAR VOLUME 105.2 fL (79-99); MONOCYTES # (AUTO) 1.4 K/uL (0.1-1.0); MONOCYTES % (AUTO) 14.8 % (3.0-13.0); NEUTROPHILS # (AUTO) 7.5 K/uL (1.8-7.7); NEUTROPHILS % (AUTO) 78.6 % (40.0-77.0); PLATELET COUNT (AUTO) 114 K/uL (130-400); RED BLOOD CELL COUNT(AUTO) 3.85 MIL/uL (4.00-5.50); RED CELL DISTRIBUTION WIDTH 13.9 % (11.0-15.5); WHITE BLOOD COUNT (AUTO) 9.5 K/uL (4.8-10.8)
[2022-10-20 05:49] LABS: ALBUMIN 2.3 g/dL (3.5-5.0); BILIRUBIN,TOTAL 0.5 mg/dL (0.2-1.0); MAGNESIUM 1.6 mg/dL (1.80-2.40); POTASSIUM 4.4 mmol/L (3.5-5.1); TOTAL PROTEIN, SERUM 7.1 g/dL (6.0-8.3)
[2022-10-20] MEDS: IPRATROPIUM/ALBUTEROL SULFATE 3 ML SOLUTION IH SCH ×4 (06:30→23:08)
[2022-10-20] MEDS: ONDANSETRON 4MG INJ IVP PRN (07:23)
[2022-10-20] MEDS: INSULIN HUMULIN R 100 UNIT/ML 3ML SQ SCH ×4 (07:24→21:00)
[2022-10-20] MEDS: OCTREOTIDE ACETATE 100 MCG/ML AMP SQ SCH ×3 (08:00→23:05)
[2022-10-20] MEDS: 0.9%NACL 1000ML 1,000 ML IV SCH ×2 (08:30→20:07)
[2022-10-20] MEDS: ENOXAPARIN SODIUM 30 MG/0.3 ML SQ SCH (09:00)
[2022-10-20] MEDS: MIDODRINE HCL 5 MG TABLET PO SCH ×3 (09:00→20:09)
[2022-10-20] MEDS: INSULIN HUMULIN SQ SCH (09:00)
[2022-10-20] MEDS ORDERED: INSLAN SQ (12:35)
[2022-10-20] MEDS ORDERED: INSU100V12 SQ (12:37)
[2022-10-20] MEDS ORDERED: HUM100IN SQ (12:44)
[2022-10-20] MEDS: ASPIRIN 81MG CHEW TAB PO SCH (12:45)
[2022-10-20] MEDS: DEXAMETHASONE 4 MG TAB PO SCH (12:45)
[2022-10-20] MEDS: METOPROLOL TARTRATE 50 MG TAB PO SCH ×2 (12:45→20:08)
[2022-10-20] MEDS: PRIMIDONE 50 MG TAB PO SCH (12:45)
[2022-10-20] MEDS: GABAPENTIN 300 MG CAPSULE PO SCH ×2 (12:45→20:07)
[2022-10-20] MEDS: DOCUSATE SODIUM 100 MG CAP PO SCH ×2 (12:45→20:07)
[2022-10-20] MEDS: ASCORBIC ACID 500 MG TAB PO SCH (12:45)
[2022-10-20] MEDS: ZINC SULFATE 220 CAPSULE PO SCH (12:45)
[2022-10-20] MEDS: BUSPIRONE HCL 5 MG TABLET PO SCH ×2 (12:46→20:07)
[2022-10-20 14:05] LABS: ABG BASE EXCESS 1.8 mmol/L (-2.0-3.0); ABG HCO3 29.8 mmol/L (21.0-28.0); ABG OXYGEN SATURATION 96.6 % (95.0-99.0); ABG PCO2 64 mmHg (32-45); CARBON MONOXIDE 0.5; DEVICE COMMENT RR 2LNC; HHb 3.4; PO2, ARTERIAL BG 92.1 mmHg (83.0-108.0); VENT MODE, BG 2LNC (ROOM AIR)
[2022-10-20] MEDS: CEFTRIAXONE 2GM VIAL IVPB SCH (15:11)
[2022-10-20] MEDS: SIMVASTATIN 20 MG TABLET PO SCH (20:08)
[2022-10-21] VITALS (13 sets, daily range): BP systolic 110–129; BP diastolic 26–44; PULSE 49–60; RESP 16–24; O2SAT 97–100
[2022-10-21] MEDS: ACETAMINOPHEN 325 MG TAB PO PRN (01:14)
[2022-10-21 04:31] LABS: ABG BASE EXCESS 5.3 mmol/L (-2.0-3.0); ABG HCO3 34.4 mmol/L (21.0-28.0); ABG OXYGEN SATURATION 94.9 % (95.0-99.0); ABG PCO2 72 mmHg (32-45); DEVICE COMMENT LR ASHLEY; PO2, ARTERIAL BG 83.8 mmHg (83.0-108.0); VENT MODE, BG BIPAP 12-5 (ROOM AIR)
[2022-10-21 05:12] LABS: EOSINOPHILS # (AUTO) 0.22 K/uL (0.00-0.70); EOSINOPHILS % (AUTO) 2.5 % (0.0-8.0); HEMATOCRIT 36.2 % (36-48); IMMATURE GRANULOCYTE ABSOLUTE 0.04 K/uL (0-1); LYMPHOCYTES # (AUTO) 0.7 K/uL (1.0-4.8); LYMPHOCYTES % (AUTO) 7.9 % (21.0-51.0); MEAN CORPUSCULAR HEMOGLOBIN 33.3 pg (27.0-33.0); MEAN CORPUSCULAR HGB CONC 31.2 g/dL (32.0-36.0); MEAN CORPUSCULAR VOLUME 106.8 fL (79-99); MONOCYTES # (AUTO) 1.2 K/uL (0.1-1.0); MONOCYTES % (AUTO) 13.9 % (3.0-13.0); NEUTROPHILS # (AUTO) 6.5 K/uL (1.8-7.7); NEUTROPHILS % (AUTO) 75.2 % (40.0-77.0); PLATELET COUNT (AUTO) 96 K/uL (130-400); RED BLOOD CELL COUNT(AUTO) 3.39 MIL/uL (4.00-5.50); RED CELL DISTRIBUTION WIDTH 14.2 % (11.0-15.5); WHITE BLOOD COUNT (AUTO) 8.7 K/uL (4.8-10.8)
[2022-10-21] MEDS: 0.9%NACL 1000ML 1,000 ML IV SCH ×3 (05:36→23:51)
[2022-10-21 05:39] LABS: ALBUMIN 1.9 g/dL (3.5-5.0); BILIRUBIN,TOTAL 0.4 mg/dL (0.2-1.0); CREATININE 1.7 mg/dL (0.5-1.5); MAGNESIUM 1.6 mg/dL (1.80-2.40); POTASSIUM 4.8 mmol/L (3.5-5.1); TOTAL PROTEIN, SERUM 5.8 g/dL (6.0-8.3)
[2022-10-21] MEDS ORDERED: MORPHINE 2 MG SYG IVP ONE (06:30)
[2022-10-21] MEDS: INSULIN HUMULIN R 100 UNIT/ML 3ML SQ SCH ×4 (06:37→21:00)
[2022-10-21] MEDS: MAGNESIUM 2GM PREMIX 50ML 50 ML IV SCH (06:42)
[2022-10-21] MEDS: IPRATROPIUM/ALBUTEROL SULFATE 3 ML SOLUTION IH SCH ×3 (06:58→19:11)
[2022-10-21] MEDS: INSULIN HUMULIN 70/30 100 UNIT/ML 3ML SQ SCH (07:30)
[2022-10-21] MEDS ORDERED: MAGNESIUM 2GM PREMIX 50ML 50 ML IV SCH (09:00)
[2022-10-21] MEDS: POLYETHYLENE GLYCOL 3350 17 GM POWD.PACK PO PRN (09:38)
[2022-10-21] MEDS: DEXAMETHASONE 4 MG TAB PO SCH (09:40)
[2022-10-21] MEDS: METOPROLOL TARTRATE 50 MG TAB PO SCH ×2 (09:40→22:00)
[2022-10-21] MEDS: MIDODRINE HCL 5 MG TABLET PO SCH ×3 (09:41→22:00)
[2022-10-21] MEDS: ASPIRIN 81MG CHEW TAB PO SCH (09:41)
[2022-10-21] MEDS: ASCORBIC ACID 500 MG TAB PO SCH (09:41)
[2022-10-21] MEDS: BUSPIRONE HCL 5 MG TABLET PO SCH ×2 (09:41→22:01)
[2022-10-21] MEDS: PRIMIDONE 50 MG TAB PO SCH (09:42)
[2022-10-21] MEDS: ZINC SULFATE 220 CAPSULE PO SCH (09:42)
[2022-10-21] MEDS: DOCUSATE SODIUM 100 MG CAP PO SCH ×2 (09:42→22:00)
[2022-10-21] MEDS: GABAPENTIN 300 MG CAPSULE PO SCH ×2 (09:42→22:00)
[2022-10-21] MEDS: ENOXAPARIN SODIUM 30 MG/0.3 ML SQ SCH (09:44)
[2022-10-21] MEDS: OCTREOTIDE ACETATE 100 MCG/ML AMP SQ SCH ×3 (10:37→23:51)
[2022-10-21 11:43] LABS: ABG BASE EXCESS 4.7 mmol/L (-2.0-3.0); ABG HCO3 33.9 mmol/L (21.0-28.0); ABG OXYGEN SATURATION 95.2 % (95.0-99.0); ABG PCO2 72 mmHg (32-45); ABG PH 7.292 (7.35-7.450); PO2, ARTERIAL BG 86.6 mmHg (83.0-108.0); VENT MODE, BG NC (ROOM AIR)
[2022-10-21] MEDS: CEFTRIAXONE 2GM VIAL IVPB SCH (15:13)
[2022-10-21] MEDS: SIMVASTATIN 20 MG TABLET PO SCH (22:01)
[2022-10-21] MEDS: INSULIN GLARGINE 100 UNITS/ML 10 ML VIAL SQ SCH (22:02)
[2022-10-22] VITALS (18 sets, daily range): BP systolic 104–137; BP diastolic 36–57; PULSE 51–65; RESP 18–24; O2SAT 94–100
[2022-10-22] MEDS: IPRATROPIUM/ALBUTEROL SULFATE 3 ML SOLUTION IH SCH ×5 (00:58→23:48)
[2022-10-22 05:32] LABS: BASOPHILS # (AUTO) 0.01 K/uL (0.00-0.20); BASOPHILS % (AUTO) 0.1 % (0.0-5.0); EOSINOPHILS # (AUTO) 0.01 K/uL (0.00-0.70); EOSINOPHILS % (AUTO) 0.1 % (0.0-8.0); HEMATOCRIT 34.2 % (36-48); IMMATURE GRANULOCYTE ABSOLUTE 0.05 K/uL (0-1); LYMPHOCYTES # (AUTO) 0.5 K/uL (1.0-4.8); MEAN CORPUSCULAR HEMOGLOBIN 33.5 pg (27.0-33.0); MEAN CORPUSCULAR HGB CONC 31.6 g/dL (32.0-36.0); MEAN CORPUSCULAR VOLUME 106.2 fL (79-99); MONOCYTES # (AUTO) 0.6 K/uL (0.1-1.0); NEUTROPHILS # (AUTO) 6.8 K/uL (1.8-7.7); NEUTROPHILS % (AUTO) 85.2 % (40.0-77.0); PLATELET COUNT (AUTO) 75 K/uL (130-400); RED BLOOD CELL COUNT(AUTO) 3.22 MIL/uL (4.00-5.50); RED CELL DISTRIBUTION WIDTH 14.2 % (11.0-15.5)
[2022-10-22 05:57] LABS: BILIRUBIN,TOTAL 0.5 mg/dL (0.2-1.0); CREATININE 1.8 mg/dL (0.5-1.5); MAGNESIUM 1.9 mg/dL (1.80-2.40); POTASSIUM 5.6 mmol/L (3.5-5.1); TOTAL PROTEIN, SERUM 5.5 g/dL (6.0-8.3)
[2022-10-22 05:58] LABS: ALBUMIN 1.8 g/dL (3.5-5.0)
[2022-10-22 06:13] LABS: WBC MORPHOLOGY CONSISTENT W/DIFF
[2022-10-22] MEDS: INSULIN HUMULIN 70/30 100 UNIT/ML 3ML SQ SCH (06:21)
[2022-10-22] MEDS: INSULIN HUMULIN R 100 UNIT/ML 3ML SQ SCH ×4 (06:22→22:29)
[2022-10-22] MEDS: ENOXAPARIN SODIUM 30 MG/0.3 ML SQ SCH ×2 (09:00→22:38)
[2022-10-22] MEDS: DEXAMETHASONE 4 MG TAB PO SCH (09:03)
[2022-10-22] MEDS: ASPIRIN 81MG CHEW TAB PO SCH (09:05)
[2022-10-22] MEDS: DOCUSATE SODIUM 100 MG CAP PO SCH ×2 (09:05→22:25)
[2022-10-22] MEDS: ZINC SULFATE 220 CAPSULE PO SCH (09:05)
[2022-10-22] MEDS: PRIMIDONE 50 MG TAB PO SCH (09:05)
[2022-10-22] MEDS: METOPROLOL TARTRATE 50 MG TAB PO SCH ×2 (09:05→22:26)
[2022-10-22] MEDS: MIDODRINE HCL 5 MG TABLET PO SCH ×3 (09:06→22:25)
[2022-10-22] MEDS: BUSPIRONE HCL 5 MG TABLET PO SCH ×2 (09:06→22:25)
[2022-10-22] MEDS: GABAPENTIN 300 MG CAPSULE PO SCH ×2 (09:06→22:26)
[2022-10-22] MEDS: ASCORBIC ACID 500 MG TAB PO SCH (09:06)
[2022-10-22] MEDS: POLYETHYLENE GLYCOL 3350 17 GM POWD.PACK PO PRN (09:07)
[2022-10-22] MEDS: OCTREOTIDE ACETATE 100 MCG/ML AMP SQ SCH ×2 (09:08→16:11)
[2022-10-22 11:10] LABS: CHOLESTEROL 86 mg/dL (<200); HDL CHOLESTEROL 26 mg/dL (35-85); LDL DIRECT 50 mg/dL (0-99); TRIGLYCERIDES 49 mg/dL (30-200)
[2022-10-22] MEDS: 0.9%NACL 1000ML 1,000 ML IV SCH ×2 (11:32→22:27)
[2022-10-22] MEDS ORDERED: KAYEXALATE 15GM/60ML PO ONE ×2 (12:00→12:30)
[2022-10-22 12:27] LABS: ABG BASE EXCESS 4.9 mmol/L (-2.0-3.0); ABG HCO3 30.6 mmol/L (21.0-28.0); ABG OXYGEN SATURATION 96.5 % (95.0-99.0); ABG PCO2 49 mmHg (32-45); ABG PH 7.414 (7.35-7.450); PO2, ARTERIAL BG 86.2 mmHg (83.0-108.0); VENT MODE, BG BIPAP 16 6 (ROOM AIR)
[2022-10-22] MEDS ORDERED: BISACODYL 10 MG SUPP.RECT RC ONE (12:30)
[2022-10-22] MEDS: CEFTRIAXONE 2GM VIAL IVPB SCH (16:10)
[2022-10-22] MEDS ORDERED: KCL 20 MEQ ERTAB PO ONE (18:00)
[2022-10-22] MEDS: SIMVASTATIN 20 MG TABLET PO SCH (22:25)
[2022-10-22] MEDS: INSULIN GLARGINE 100 UNITS/ML 10 ML VIAL SQ SCH (22:30)
[2022-10-23] VITALS (16 sets, daily range): BP systolic 96–171; BP diastolic 30–86; PULSE 54–63; RESP 17–20; O2SAT 98–100
[2022-10-23] MEDS: OCTREOTIDE ACETATE 100 MCG/ML AMP SQ SCH ×4 (00:07→23:52)
[2022-10-23 05:32] LABS: HEMATOCRIT 33.7 % (36-48); MEAN CORPUSCULAR HEMOGLOBIN 33.5 pg (27.0-33.0); MEAN CORPUSCULAR VOLUME 104.7 fL (79-99); RED BLOOD CELL COUNT(AUTO) 3.22 MIL/uL (4.00-5.50); RED CELL DISTRIBUTION WIDTH 14.5 % (11.0-15.5); WHITE BLOOD COUNT (AUTO) 8.8 K/uL (4.8-10.8)
[2022-10-23] MEDS: INSULIN HUMULIN R 100 UNIT/ML 3ML SQ SCH ×4 (06:15→20:46)
[2022-10-23] MEDS: IPRATROPIUM/ALBUTEROL SULFATE 3 ML SOLUTION IH SCH ×4 (06:22→23:31)
[2022-10-23] MEDS: INSULIN HUMULIN 70/30 100 UNIT/ML 3ML SQ SCH (06:25)
[2022-10-23] MEDS: 0.9%NACL 1000ML 1,000 ML IV SCH ×2 (06:26→16:30)
[2022-10-23 06:39] LABS: ALBUMIN 1.9 g/dL (3.5-5.0); CREATININE 1.5 mg/dL (0.5-1.5); MAGNESIUM 1.8 mg/dL (1.80-2.40); POTASSIUM 5.3 mmol/L (3.5-5.1)
[2022-10-23 06:56] LABS: SARS-CoV-2, RNA, NAAT NEGATIVE SARS CoV-2 (NEGATIVE)
[2022-10-23] MEDS ORDERED: LEVOFLOXACIN 500 MG/D5W 100 ML 100 ML IV SCH (07:30)
[2022-10-23] MEDS ORDERED: LEVOFLOXACIN 500 MG/D5W 100 ML 100 ML IV ONE (09:00)
[2022-10-23] MEDS: ENOXAPARIN SODIUM 30 MG/0.3 ML SQ SCH (09:00)
[2022-10-23] MEDS: DOCUSATE SODIUM 100 MG CAP PO SCH ×2 (10:24→20:36)
[2022-10-23] MEDS: ASPIRIN 81MG CHEW TAB PO SCH (10:24)
[2022-10-23] MEDS: ASCORBIC ACID 500 MG TAB PO SCH (10:25)
[2022-10-23] MEDS: PRIMIDONE 50 MG TAB PO SCH (10:25)
[2022-10-23] MEDS: METOPROLOL TARTRATE 50 MG TAB PO SCH ×2 (10:25→20:37)
[2022-10-23] MEDS: ZINC SULFATE 220 CAPSULE PO SCH (10:25)
[2022-10-23] MEDS: MIDODRINE HCL 5 MG TABLET PO SCH ×3 (10:25→20:37)
[2022-10-23] MEDS: GABAPENTIN 300 MG CAPSULE PO SCH ×2 (10:26→20:36)
[2022-10-23] MEDS: DEXAMETHASONE 4 MG TAB PO SCH (10:26)
[2022-10-23] MEDS: BUSPIRONE HCL 5 MG TABLET PO SCH ×2 (10:26→20:36)
[2022-10-23] MEDS: ALPRAZOLAM 0.25 MG TABLET PO PRN (17:20)
[2022-10-23] MEDS: SIMVASTATIN 20 MG TABLET PO SCH (20:37)
[2022-10-23] MEDS: INSULIN GLARGINE 100 UNITS/ML 10 ML VIAL SQ SCH (20:46)
[2022-10-23] MEDS: MAGNESIUM 2GM PREMIX 50ML 50 ML IV SCH (20:47)
[2022-10-24] VITALS (13 sets, daily range): BP systolic 131–164; BP diastolic 46–82; PULSE 54–78; RESP 18–21; O2SAT 95–99
[2022-10-24 05:34] LABS: HEMATOCRIT 33.1 % (36-48); MEAN CORPUSCULAR HEMOGLOBIN 33.3 pg (27.0-33.0); MEAN CORPUSCULAR HGB CONC 31.7 g/dL (32.0-36.0); MEAN CORPUSCULAR VOLUME 105.1 fL (79-99); RED BLOOD CELL COUNT(AUTO) 3.15 MIL/uL (4.00-5.50); RED CELL DISTRIBUTION WIDTH 14.6 % (11.0-15.5); WHITE BLOOD COUNT (AUTO) 7.6 K/uL (4.8-10.8)
[2022-10-24 06:06] LABS: CREATININE 1.5 mg/dL (0.5-1.5); MAGNESIUM 2.1 mg/dL (1.80-2.40); POTASSIUM 5.8 mmol/L (3.5-5.1)
[2022-10-24] MEDS: INSULIN HUMULIN 70/30 100 UNIT/ML 3ML SQ SCH (06:30)
[2022-10-24] MEDS: INSULIN HUMULIN R 100 UNIT/ML 3ML SQ SCH ×4 (06:31→21:11)
[2022-10-24] MEDS: IPRATROPIUM/ALBUTEROL SULFATE 3 ML SOLUTION IH SCH ×4 (06:34→23:01)
[2022-10-24] MEDS ORDERED: KAYEXALATE 15GM/60ML PO ONE (08:00)
[2022-10-24] MEDS: ENOXAPARIN SODIUM 30 MG/0.3 ML SQ SCH (09:00)
[2022-10-24] MEDS: LEVOFLOXACIN 250 MG/D5W 50ML 50 ML IVPB SCH (09:34)
[2022-10-24] MEDS: DOCUSATE SODIUM 100 MG CAP PO SCH ×2 (09:35→21:14)
[2022-10-24] MEDS: ASCORBIC ACID 500 MG TAB PO SCH (09:35)
[2022-10-24] MEDS: GABAPENTIN 300 MG CAPSULE PO SCH ×2 (09:35→21:15)
[2022-10-24] MEDS: PRIMIDONE 50 MG TAB PO SCH (09:35)
[2022-10-24] MEDS: DEXAMETHASONE 4 MG TAB PO SCH (09:35)
[2022-10-24] MEDS: ZINC SULFATE 220 CAPSULE PO SCH (09:35)
[2022-10-24] MEDS: METOPROLOL TARTRATE 50 MG TAB PO SCH ×2 (09:35→21:14)
[2022-10-24] MEDS: BUSPIRONE HCL 5 MG TABLET PO SCH ×2 (09:35→21:14)
[2022-10-24] MEDS: ASPIRIN 81MG CHEW TAB PO SCH (09:36)
[2022-10-24] MEDS: OCTREOTIDE ACETATE 100 MCG/ML AMP SQ SCH ×2 (09:42→16:39)
[2022-10-24] MEDS: INSULIN GLARGINE 100 UNITS/ML 10 ML VIAL SQ SCH (21:13)
[2022-10-24] MEDS: SIMVASTATIN 20 MG TABLET PO SCH (21:14)
[2022-10-24] MEDS: ALPRAZOLAM 0.25 MG TABLET PO PRN (21:27)
[2022-10-25] VITALS (10 sets, daily range): BP systolic 116–157; BP diastolic 56–70; PULSE 56–66; RESP 18–23; O2SAT 97–100
[2022-10-25] MEDS: OCTREOTIDE ACETATE 100 MCG/ML AMP SQ SCH ×2 (01:26→16:32)
[2022-10-25 05:22] LABS: HEMATOCRIT 35.5 % (36-48); MEAN CORPUSCULAR HEMOGLOBIN 33.1 pg (27.0-33.0); MEAN CORPUSCULAR HGB CONC 31.5 g/dL (32.0-36.0); RED BLOOD CELL COUNT(AUTO) 3.38 MIL/uL (4.00-5.50); RED CELL DISTRIBUTION WIDTH 14.9 % (11.0-15.5)
[2022-10-25 05:35] LABS: CREATININE 1.4 mg/dL (0.5-1.5); MAGNESIUM 2.1 mg/dL (1.80-2.40); POTASSIUM 5.3 mmol/L (3.5-5.1)
[2022-10-25] MEDS: IPRATROPIUM/ALBUTEROL SULFATE 3 ML SOLUTION IH SCH ×3 (06:33→19:21)
[2022-10-25] MEDS: INSULIN HUMULIN 70/30 100 UNIT/ML 3ML SQ SCH (06:45)
[2022-10-25] MEDS: INSULIN HUMULIN R 100 UNIT/ML 3ML SQ SCH ×2 (06:45→16:41)
[2022-10-25] MEDS: PRIMIDONE 50 MG TAB PO SCH (09:00)
[2022-10-25] MEDS ORDERED: BUMETANIDE 1 MG TAB PO SCH (09:00)
[2022-10-25] MEDS ORDERED: KAYEXALATE 15GM/60ML PO ONE (09:00)
[2022-10-25] MEDS: DEXAMETHASONE 4 MG TAB PO SCH (10:09)
[2022-10-25] MEDS: METOPROLOL TARTRATE 50 MG TAB PO SCH (10:10)
[2022-10-25] MEDS: BUSPIRONE HCL 5 MG TABLET PO SCH (10:12)
[2022-10-25] MEDS: GABAPENTIN 300 MG CAPSULE PO SCH (10:13)
[2022-10-25] MEDS: DOCUSATE SODIUM 100 MG CAP PO SCH (10:14)
[2022-10-25] MEDS: ASPIRIN 81MG CHEW TAB PO SCH (10:16)
[2022-10-25] MEDS: ZINC SULFATE 220 CAPSULE PO SCH (10:16)
[2022-10-25] MEDS: LEVOFLOXACIN 250 MG/D5W 50ML 50 ML IVPB SCH (10:19)
[2022-10-25] MEDS: ENOXAPARIN SODIUM 30 MG/0.3 ML SQ SCH (10:19)
[2022-10-25] MEDS: ASCORBIC ACID 500 MG TAB PO SCH (16:30)
== END 2022-10-25 20:15 | DRG 177 ==
LOC: EDH 16:57 → EDHIP 23:38 → OBSVTOIN 23:38 → 3AH 10-14 12:15
PROVIDERS: ADMIT Internal Medicine Critical Care Medicine; ATTEND Internal Medicine Critical Care Medicine
PROC: 5A09357 Assistance with Respiratory Ventilation, Less than 24 Consecutive Hours, Continuous Positive Airway Pressure (ICD-10-PCS; principal; 2022-10-20)
PROC: 5A09357 Assistance with Respiratory Ventilation, Less than 24 Consecutive Hours, Continuous Positive Airway Pressure (ICD-10-PCS; 2022-10-22)
PROC: 5A09357 Assistance with Respiratory Ventilation, Less than 24 Consecutive Hours, Continuous Positive Airway Pressure (ICD-10-PCS; 2022-10-23)
DX: U07.1 COVID-19 (principal); J12.82 Pneumonia due to coronavirus disease 2019; J96.01 Acute respiratory failure with hypoxia; J96.02 Acute respiratory failure with hypercapnia; N17.0 Acute kidney failure with tubular necrosis; L03.115 Cellulitis of right lower limb; Z68.43 Body mass index [BMI] 50.0-59.9, adult; L97.919 Non-pressure chronic ulcer of unspecified part of right lower leg with unspecified severity; G93.40 Encephalopathy, unspecified; J44.0 Chronic obstructive pulmonary disease with (acute) lower respiratory infection; J44.1 Chronic obstructive pulmonary disease with (acute) exacerbation; N30.00 Acute cystitis without hematuria; E11.65 Type 2 diabetes mellitus with hyperglycemia; D50.9 Iron deficiency anemia, unspecified; I25.10 Atherosclerotic heart disease of native coronary artery without angina pectoris; G47.33 Obstructive sleep apnea (adult) (pediatric); E66.01 Morbid (severe) obesity due to excess calories; B96.1 Klebsiella pneumoniae [K. pneumoniae] as the cause of diseases classified elsewhere; E11.22 Type 2 diabetes mellitus with diabetic chronic kidney disease; E11.649 Type 2 diabetes mellitus with hypoglycemia without coma; E78.00 Pure hypercholesterolemia, unspecified; E87.5 Hyperkalemia; I12.9 Hypertensive chronic kidney disease with stage 1 through stage 4 chronic kidney disease, or unspecified chronic kidney disease; K59.00 Constipation, unspecified; K74.60 Unspecified cirrhosis of liver; N14.11 Contrast-induced nephropathy; N18.30 Chronic kidney disease, stage 3 unspecified; T50.8X5A Adverse effect of diagnostic agents, initial encounter; Z78.9 Other specified health status; Z83.3 Family history of diabetes mellitus; Z90.710 Acquired absence of both cervix and uterus
CPT/HCPCS: 36415; 36600; 70450; 71045; 71270; 74018; 80048; 80053; 80061; 80069; 81001; 82140; 82306; 82435; 82550; 82803; 82947; 82948; 83036; 83605; 83735; 83874; 83880; 84100; 84132; 84145; 84295; 84443; 84484; 85018; 85025; 85027; 85378; 85610; 86140; 87040; 87070; 87076; 87077; 87088; 87186; 87635; 87804; 93005; 93306; 93880; 93970; 94640; 94660; 94664; 97039; C1894; C9803; G0378; J0696; J1100; J1650; J1815; J1940; J1956; J2270; J2354; J2405; J2543; J2930; J3475; J3490; J7070; J8540; P9047; Q9967; C1750